=== PATIENT | female | born 2000 | race Two or more races ===

== ENCOUNTER → 2022-09-16 | Emergency (ER) | payer OTHER ==
[~2022-09-16] VITALS: Ht 162.6 cm; Wt 138.3 kg
[~2022-09-16] MED LIST: ADVAIR 100-501 EACH; KETO10TA2 PO; ORPHENADRINE C100 MG PO
== END | disposition home or self-care (01) ==
LOC: ER 23:43
DX: M62.838 Other muscle spasm (principal); M54.2 Cervicalgia; Z88.8 Allergy status to other drugs, medicaments and biological substances